=== PATIENT | male | born 1945 | race Caucasian/White ===

== ENCOUNTER 2019-09-02 18:54 | Emergency (ER) | payer MEDICARE ==
[~2019-09-02] VITALS: Ht 180.3 cm; Wt 110.0 kg
[~2019-09-02 18:54] MED LIST: AMIODARONE 150 MG/3 ML VIAL ONE; EPINEPHrine SYRINGE 1 MG/10 ML SYRINGE ONE; SODIUM BICARB ADULT 8.4% 50 MEQ/50 ML DISP.SYRIN. ONE
--- NOTE | 2019-09-02 19:27 | PHYS DOC ---
General Adult EDM: Chief Complaint: CPR/FULL ARREST HPI: HPI: Patient is a 74 year old male who presents via EMS in cardiac arrest. Patient was out at the [place] when he collapsed and bystanders started CPR. First responders at the [place] responded and continued CPR until EMS arrived. EMS hooked patient up to monitor and patient noted to be in V. fib. And patient was shocked. Patient given multiple doses of epi and shocked total of 7 times while in route to emergency room. Upon arrival patient had been down for at least 45 minutes. EMS reports V. fib on all pulse checks with no ROSC. Upon arrival, CPR still in progress. Patient is reported to have history of lung cancer, CAD with history of CABG 17 years ago and diabetes. Additional history is limited due to severity of patient condition. [] Review of Systems: Review of Systems: Constitutional: No reported fever. [] Neurologic: Positive mental status change/collapse. [] Unable to fully assess review of systems due to severity of patient condition Heart Score: Risk Factors: Risk Factors: DM, Current or recent (<one month) smoker, HTN, HLP, family history of CAD, obesity. Risk Scores: Score 0 - 3: 2.5% MACE over next 6 weeks - Discharge Home Score 4 - 6: 20.3% MACE over next 6 weeks - Admit for Clinical Observation Score 7 - 10: 72.7% MACE over next 6 weeks - Early Invasive Strategies Physical Exam: PE: Constitutional: Well developed, well nourished, no acute distress, non-toxic appearance. [] HENT: Normocephalic, atraumatic, bilateral external ears normal, blood is noted in oropharynx, no oral exudates, nose normal. [] Eyes: Pupils fixed and dilated, conjunctiva normal, no discharge. [] Neck: Normal range of motion, no tenderness, supple. [] Cardiovascular: No heart tones noted/patient in V. fib [] Lungs & Thorax: Coarse rhonchi are noted on bagged respirations to auscultation [] Abdomen: Bowel sounds absent, soft, no masses. [] Skin: Warm, dry, no erythema, no rash. [] Extremities: No clubbing, central cyanosis is present. [] Neurologic: Unresponsive, CPR in progress. [] EKG: EKG: [] Radiology/Procedures: Radiology/Procedures: [] Course & Med Decision Making: Course & Med Decision Making Pertinent Labs and Imaging studies reviewed. (See chart for details) Patient arrived via EMS, moved to room upon arrival and transferred to bed with CPR in progress. Patient had IO in place. CPR was continued per ACLS protocol and patient initiated with IV amiodarone bolus. Simultaneously, patient set up for intubation. Post intubation, CPR was continued and patient given additional shocks along with epinephrine. 2 A of bicarb were additionally given. Patient was emergently intubated with 7.5 ET tube, advanced to 23 cm at the lip via glide scope with direct visualization of cords. Tube placement was confirmed with CO2 colorimeter as well as equal bilateral breath sounds. CPR was continued as above and ultimately after final pulse check revealing continued ventricular fibrillation, patient was pronounced at 7:03 PM. Dragon Disclaimer: Dragon Disclaimer: This electronic medical record was generated, in whole or in part, using a voice recognition dictation system. Departure Departure Impression: Primary Impression: Cardiac arrest Disposition: 20 Condition: TONY TAN Jr. DO September 02, 2019 19:27
== END 2019-09-02 21:50 | disposition expired ==
LOC: ER 18:54
DX: I46.9 Cardiac arrest, cause unspecified (principal)
CPT/HCPCS: 31500; 92950; 99285; J0171; J0282; J3490